=== PATIENT | male | born 1950 | race Caucasian/White ===

== ENCOUNTER 2017-08-24 09:43 | Day surgery (SDC) | payer OTHER, MEDICARE ==
[~2017-08-24] VITALS: Ht 177.8 cm; Wt 107.0 kg
[~2017-08-24 09:43] MED LIST: ASPI-650 PO; ATOR10TA PO; CINN500C2 PO; MV-M1TAB16 PO
[2017-08-24 10:48] VITALS: BP 138/85
[2017-08-24] MEDS: LACTATED RINGERS 1,000 ML IV SCH (11:10)
[2017-08-24] MEDS ORDERED: EPINEPHRINE 1 MG/ML, 1ML ONE (12:17)
[2017-08-24] MEDS ORDERED: BUPIVACAINE/PF 0.5% ONE (12:17)
[2017-08-24] MEDS ORDERED: ROCURONIUM 10 MG/ML,10ML ONE (12:41)
[2017-08-24] MEDS ORDERED: FENTANYL PF 100 MCG/2ML ONE ×3 (12:41→14:23)
[2017-08-24] MEDS ORDERED: CEFAZOLIN 1,000 MG ONE (12:41)
[2017-08-24] MEDS ORDERED: SUCCINYLCHOLINE 20 MG/ML, 10ML ONE (12:41)
[2017-08-24] MEDS ORDERED: DEXAMETHASONE 4 MG/ML, 5ML ONE (12:41)
[2017-08-24] MEDS ORDERED: ONDANSETRON 2MG/ML, 2ML ONE (12:41)
[2017-08-24] MEDS ORDERED: PROPOFOL 10 MG/ML, 20ML ONE (12:41)
[2017-08-24] MEDS ORDERED: MIDAZOLAM 1 MG/ML, 2ML ONE (12:42)
[2017-08-24] MEDS ORDERED: EPINEPHRINE 1 MG/ML, 1ML INFIL ONE (13:03)
[2017-08-24] MEDS ORDERED: BUPIVACAINE/PF 0.5% INFIL ONE (13:03)
[2017-08-24] MEDS ORDERED: LABETALOL 5MG/ML, 20ML IV PRN (13:30)
[2017-08-24] MEDS ORDERED: PROMETHAZINE 25 MG/ML, 1ML IV PRN (13:30)
[2017-08-24] MEDS ORDERED: ALBUTEROL SULFATE 2.5 MG/3 ML NPPB PRN (13:30)
[2017-08-24] MEDS ORDERED: ONDANSETRON 2MG/ML, 2ML IVPush PRN (13:30)
[2017-08-24] MEDS ORDERED: hydrALAzine 20 MG/ML, 1ML IV PRN (13:30)
[2017-08-24] MEDS ORDERED: ACETAMINOPHEN 325 MG TABLET PO PRN (13:30)
[2017-08-24] MEDS ORDERED: MEPERIDINE/PF 25MG/0.5ML IVPush PRN (13:30)
[2017-08-24] MEDS ORDERED: HYDROmorphone 1 MG/ML, 1ML IV PRN (13:30)
[2017-08-24] MEDS ORDERED: MIDAZOLAM 1 MG/ML, 2ML IV PRN (13:30)
[2017-08-24] MEDS ORDERED: OXYcodone 5 MG/5 ML ORAL.SOL UDC PO PRN (13:30)
[2017-08-24] MEDS ORDERED: FENTANYL PF 100 MCG/2ML IV PRN (13:30)
[2017-08-24] MEDS ORDERED: ACETAMINOPHEN 650 MG/20.3 ML UDC ONE (14:03)
[2017-08-24] MEDS ORDERED: OXYcodone 5 MG/5 ML ORAL.SOL UDC ONE (14:03)
[2017-08-24] MEDS ORDERED: LABETALOL 5MG/ML, 20ML ONE (14:38)
== END 2017-08-24 17:15 | disposition home or self-care (01) ==
LOC: OUT 09:43
PROVIDERS: ATTEND Surgery
DX: I82.811 Embolism and thrombosis of superficial veins of right lower extremity (principal); I83.11 Varicose veins of right lower extremity with inflammation; E78.5 Hyperlipidemia, unspecified; E66.9 Obesity, unspecified; Z68.38 Body mass index [BMI] 38.0-38.9, adult; Z88.1 Allergy status to other antibiotic agents; Z88.5 Allergy status to narcotic agent
CPT/HCPCS: 37722; 93005; J0171; J0330; J0690; J1100; J2250; J2405; J2704; J3010; J3490; J7120

== ENCOUNTER → 2017-12-31 | Outpatient (CLI) | payer OTHER, MEDICARE ==
[~2017-12-31] MED LIST changes: +ASTA4CAP PO; +CHOL2000 PO; +CYCL5TAB PO; +DOCO100C PO; +FATTY ACID PO; +NABU500T PO; +NIAC500T9 PO; +OMEG-26 PO; +OMEGA KRILL PO; +OMEGA PO; +TURM1POW2 PO; +VITA40TA PO
[2017-12-31 13:44] LABS: BASOPHILS # (AUTO) 0.04 x10^3/uL (0-0.1); BASOPHILS % (AUTO) 1 % (0-1); EOSINOPHILS # (AUTO) 0.41 x10^3/uL (0-0.4); EOSINOPHILS % (AUTO) 6 % (1-7); LYMPHOCYTES % (AUTO) 30 % (22-44); MD NO; MEAN CORPUSCULAR HEMOGLOBIN 32.4 pg (27.5-34.5); MEAN CORPUSCULAR HGB CONC 34.2 g/dL (33.2-36.2); MEAN CORPUSCULAR VOLUME 94.7 fL (81-97); MEAN PLATELET VOLUME 7.4 fL (7.4-10.4); MONOCYTES # (AUTO) 0.46 x10^3/uL (0.2-0.8); MONOCYTES % (AUTO) 7 % (2-9); NEUTROPHILS # (AUTO) 3.62 x10^3/uL (1.8-6.8); NEUTROPHILS % (AUTO) 56 % (42-75); PLATELET COUNT 225 x10^3/uL (130-400); RED BLOOD COUNT 5.08 x10^6/uL (4.38-5.82); RED CELL DISTRIBUTION WIDTH 12.8 % (9.4-14.8)
[2017-12-31 13:53] LABS: ALBUMIN 4.1 g/dL (3.4-5.0); ANION GAP 6 mmol/L (5-15); CALCIUM 8.8 mg/dL (8.5-10.1); CHLORIDE 107 mmol/L (98-107); INTERNATIONAL NORMALIZED RATIO 1.02 (0.93-1.1); PROTHROMBIN TIME 10.6 Seconds (9.6-11.5)
[2017-12-31 13:57] LABS: ALANINE AMINOTRANSFERASE 49 U/L (12-78); ALKALINE PHOSPHATASE 84 U/L (45-117); BILIRUBIN,TOTAL 1.4 mg/dL (0.2-1.0); CREATININE 0.83 mg/dL (0.7-1.3); TOTAL PROTEIN 6.9 g/dL (6.4-8.2)
== END | disposition home or self-care (01) ==
LOC: STAR 12:26
PROVIDERS: ATTEND Neurological Surgery
DX: Z01.818 Encounter for other preprocedural examination (principal); M50.00 Cervical disc disorder with myelopathy, unspecified cervical region
CPT/HCPCS: 36415; 71046; 80053; 85025; 85610; 85730; 93005

== ENCOUNTER → 2018-02-25 | Outpatient (CLI) | payer OTHER, MEDICARE ==
[~2018-02-25] MED LIST changes: +REGADENOSON 0.4 MG/5 ML SYRINGE ONE
== END | disposition home or self-care (01) ==
LOC: CFH 07:40
PROVIDERS: ATTEND Internal Medicine
DX: R06.02 Shortness of breath (principal); Z93.1 Gastrostomy status
CPT/HCPCS: 78452; 93017; A9502; J2785